=== PATIENT | female | born 1995 | race Caucasian/White ===

== ENCOUNTER 2021-06-28 05:38 | Inpatient (IN) | payer MEDICAID ==
[~2021-06-28] VITALS: Ht 165.1 cm; Wt 68.0 kg
[2021-06-28] MEDS ORDERED: ACETAMINOPHEN 500 MG TABLET PO ONE (06:45)
[2021-06-28 08:28] LABS: COVID AG,FIA SOURCE NASAL SWAB
[2021-06-28] MEDS ORDERED: LORazepam 2 MG TABLET PO PRN (08:30)
[2021-06-28] MEDS ORDERED: ZOLPIDEM TARTRATE 10 MG TABLET PO PRN (08:30)
[2021-06-28] MEDS ORDERED: HALOPERIDOL 5 MG TABLET PO PRN (08:30)
[2021-06-28 15:27] VITALS: BP 128/59
[2021-06-28 16:11] VITALS: BP 122/79
[2021-06-29 07:12] VITALS: BP 122/82
[2021-06-29] MEDS ORDERED: ONDANSETRON HCL 4 MG TABLET PO PRN (13:45)
[2021-06-29] MEDS ORDERED: LOPERAMIDE HCL 2 MG CAPSULE PO PRN (13:45)
[2021-06-29] MEDS ORDERED: MAG HYDROX/AL HYDROX/SIMETH ES 30 ML SUSPENSION UDCUP PO PRN (13:45)
[2021-06-29] MEDS ORDERED: DOCUSATE SODIUM 100 MG CAPSULE PO PRN (13:45)
[2021-06-29] MEDS ORDERED: IBUPROFEN 400 MG TABLET PO PRN (13:45)
[2021-06-29] MEDS ORDERED: PETROLATUM,WHITE 28 GM JELLY TP PRN (13:45)
[2021-06-29] MEDS ORDERED: ALBUTEROL SULFATE HFA 90 MCG/PUFF 8 GM INHALER IH PRN (13:45)
[2021-06-29] MEDS ORDERED: MAGNESIUM HYDROXIDE SUSPENSION 30 ML UDCUP PO PRN (13:45)
[2021-06-29] MEDS ORDERED: ACETAMINOPHEN 325 MG TABLET PO PRN (13:45)
[2021-06-29] MEDS ORDERED: CloNIDine HCL 0.1 MG TABLET PO PRN (13:45)
[2021-06-29] MEDS ORDERED: GuaiFENesin/D-METHORPHAN [SUGAR-FREE] 200-20MG/10 ML SYRUP UDCUP PO PRN (13:45)
[2021-06-29] MEDS ORDERED: NICOTINE 14 MG/24 HOUR PATCH TD PRN (13:45)
[2021-06-29 16:31] VITALS: BP 116/76
[2021-06-29] MEDS: LURASIDONE HCL 60 MG TABLET PO SCH (17:00)
[2021-06-29] MEDS: LamoTRIgine 25 MG TABLET PO SCH (21:00)
[2021-06-29] MEDS: TraZODone HCL 50 MG TABLET PO SCH (21:00)
[2021-06-30 00:48] VITALS: BP 118/71
[2021-06-30] MEDS ORDERED: ARIPiprazole 5 MG TABLET PO SCH (14:30)
[2021-06-30] MEDS: LURASIDONE HCL 60 MG TABLET PO SCH (16:09)
[2021-06-30 16:14] VITALS: BP 144/90
[2021-06-30] MEDS: LamoTRIgine 25 MG TABLET PO SCH (20:10)
[2021-06-30] MEDS: TraZODone HCL 50 MG TABLET PO SCH (20:10)
[2021-07-01 02:13] VITALS: BP 125/79
[2021-07-01 07:17] LABS: BASOPHILS % (AUTO) 0.5 % (0.0-2.0); EOSINOPHILS % (AUTO) 0.9 % (1.0-6.0); HEMATOCRIT 36.1 % (36-46); HEMOGLOBIN 12.2 g/dL (12.0-16.0); LYMPHOCYTES # (AUTO) 1.7 K/uL (1.0-4.8); LYMPHOCYTES % (AUTO) 22.2 % (22.0-44.0); MEAN CORPUSCULAR HGB CONC 33.8 G/dL (31.0-37.0); MEAN CORPUSCULAR VOLUME 89 fL (80-100); MONOCYTES # (AUTO) 0.7 K/uL (0.1-1.0); MONOCYTES % (AUTO) 9.4 % (2.0-9.0); NEUTROPHILS # (AUTO) 5.1 K/uL (1.8-7.7); PLATELET COUNT (AUTO) 282 K/uL (150-450); RED BLOOD CELL COUNT(AUTO) 4.06 MIL/uL (4.00-5.20); RED CELL DISTRIBUTION WIDTH 14.1 % (11.5-14.5)
[2021-07-01 07:26] LABS: HEMOGLOBIN A1C 5.2 % (3.8-5.6)
[2021-07-01 07:44] LABS: ALANINE AMINOTRANSFERASE 16 U/L (12-78); ALBUMIN 3.8 g/dL (3.4-5.0); ALKALINE PHOSPHATASE 70 U/L (46-116); ANION GAP 5 mmol/L (8-16); ASPARTATE AMINOTRANSFERASE 11 U/L (15-37); BILIRUBIN,TOTAL 0.3 mg/dL (0.1-1.0); CARBON DIOXIDE 29 mmol/L (22-29); CHLORIDE 103 mmol/L (98-107); CHOL/HDL RATIO 2.2 (3.9-5.7); CHOLESTEROL 156 mg/dL (131-200); CREATININE 0.65 mg/dL (0.60-1.30); FREE T4 (FREE THYROXINE) 0.96 ng/dL (0.76-1.46); GLOMERULAR FILTR. RATE CALC > 60 mL/min (>60); GLUCOSE,RANDOM 84 mg/dL (70-110); HDL CHOLESTEROL 71 mg/dL (40-60); LDL CHOL (CALC.) 73 mg/dL (0-130); SODIUM SERUM 137 mmol/L (136-145); THYROID STIMULATING HORMONE 1.19 uIU/mL (0.36-3.74); TOTAL PROTEIN, SERUM 7.6 g/dL (6.4-8.2); TRIGLYCERIDES 62 mg/dL (15-150); UREA NITROGEN, BLOOD 14 mg/dL (7-18)
[2021-07-01 08:17] VITALS: BP 133/85
[2021-07-01 16:07] VITALS: BP 134/91
[2021-07-01] MEDS: LURASIDONE HCL 60 MG TABLET PO SCH (16:58)
[2021-07-01] MEDS: LamoTRIgine 25 MG TABLET PO SCH (20:24)
[2021-07-01] MEDS: TraZODone HCL 50 MG TABLET PO SCH (20:24)
[2021-07-02 05:47] VITALS: BP 114/72
[2021-07-02 08:26] VITALS: BP 127/81
[2021-07-02 16:11] VITALS: BP 129/81
[2021-07-02] MEDS: LURASIDONE HCL 60 MG TABLET PO SCH (17:22)
[2021-07-02] MEDS: TraZODone HCL 50 MG TABLET PO SCH (20:40)
[2021-07-02] MEDS: LamoTRIgine 25 MG TABLET PO SCH (20:41)
[2021-07-03 05:34] VITALS: BP 133/81
[2021-07-03 16:30] VITALS: BP 133/85
[2021-07-03] MEDS: LURASIDONE HCL 60 MG TABLET PO SCH (20:47)
[2021-07-03] MEDS: LamoTRIgine 25 MG TABLET PO SCH (20:48)
[2021-07-03] MEDS: TraZODone HCL 50 MG TABLET PO SCH (20:48)
[2021-07-04 00:43] VITALS: BP 134/88
[2021-07-04 08:36] VITALS: BP 135/79
== END 2021-07-04 16:49 | disposition left against medical advice (07) | DRG 753 ==
LOC: EMS 05:39 → B3A 07:58
PROVIDERS: ADMIT Psychiatry & Neurology Child & Adolescent Psychiatry; ATTEND Psychiatry & Neurology Child & Adolescent Psychiatry
DX: F31.2 Bipolar disorder, current episode manic severe with psychotic features (principal); F41.9 Anxiety disorder, unspecified; Z53.20 Procedure and treatment not carried out because of patient's decision for unspecified reasons; G47.00 Insomnia, unspecified; R10.13 Epigastric pain; Z20.822 Contact with and (suspected) exposure to COVID-19; Z53.29 Procedure and treatment not carried out because of patient's decision for other reasons
CPT/HCPCS: 80053; 80061; 83036; 84439; 84443; 84703; 85025; 99285; Q9967